=== PATIENT | female | born 1995 ===

== ENCOUNTER 2024-08-02 20:41 | Emergency (ER) | payer OTHER, MEDICAID ==
[~2024-08-02] VITALS: Ht 157.5 cm; Wt 54.6 kg
[2024-08-02] MEDS ORDERED: DOXY150T9 PO (22:04)
[2024-08-02] MEDS: CefTRIAXone 1000mg IM Kit (w/lidocaine diluent) IM ONE (22:15)
[2024-08-02] MEDS: ketorolac trometh 30MG/ML vial 30 MG/ML VIAL IM ONE (22:26)
[2024-08-02 22:30] VITALS: BP 110/74; PULSE 76; RESP 14; TEMP 98.1; O2SAT 97
== END 2024-08-02 22:31 | disposition home or self-care (01) ==
LOC: ER 20:41
DX: L02.01 Cutaneous abscess of face (principal)
CPT/HCPCS: 96372; 99283; J1885